=== PATIENT | female | born 1955 | race Caucasian/White ===

== ENCOUNTER → 2017-05-27 | Outpatient (CLI) | payer BC ==
[~2017-05-27] MED LIST: CEPHALEXIN500 M1 PO; FLEXERIL 1010 MG/TAB PO; NORCO 325 MG-51 TAB PO; PRILOSEC10 MG PO; VALTREX1 GM PO
== END ==
LOC: MC.RAD 08:22
DX: Z12.31 Encounter for screening mammogram for malignant neoplasm of breast (principal)

== ENCOUNTER → 2018-06-14 | Outpatient (CLI) | payer BC | LOC: MC.RAD 07:18 | DX: Z12.31 Encounter for screening mammogram for malignant neoplasm of breast (principal) ==

== ENCOUNTER → 2019-07-05 | Outpatient (CLI) | payer BC | LOC: MC.RAD 07:30 | DX: Z12.31 Encounter for screening mammogram for malignant neoplasm of breast (principal); N63.21 Unspecified lump in the left breast, upper outer quadrant ==

== ENCOUNTER → 2019-07-10 | Outpatient (CLI) | payer BC | LOC: MC.RAD 06:59 | DX: N63.21 Unspecified lump in the left breast, upper outer quadrant (principal) ==

== ENCOUNTER 2019-11-28 11:31 | Observation (INO) | payer BC ==
[~2019-11-28] VITALS: Ht 10.2 cm; Wt 75.3 kg
[2019-11-28 12:08] LABS: PROTHROMBIN TIME 11.5 SECONDS (9.7-12.8)
[2019-11-28 12:10] LABS: BASO # 0.1 (0.0-0.2); BASO % 0.9 % (0.0-2.0); EOS # 0.5 (0.0-0.7); EOS % 4.3 % (0-4.0); GRAN # 6.3 (1.4-6.5); GRAN % 60.8 % (42.2-75.2); HEMATOCRIT 38.9 % (37.0-47.0); HEMOGLOBIN 12.1 g/dl (12.5-16.0); LYMPH # 2.7 (1.2-3.4); LYMPH % 25.5 % (20.0-51.0); MEAN CELL VOLUME 84 fl (80.0-100.0); MEAN CORPUSCULAR HEMOGLOBIN 26 pg (27.0-31.0); MEAN CORPUSCULAR HGB CONC 31 g/dl (33.0-37.0); MEAN PLATELET VOLUME 10.8 fl (7.4-10.4); MONO # 0.9 (0.1-0.6); MONO % 8.2 % (1.7-9.3); PARTIAL THROMBOPLASTIN TIME 30.5 SECONDS (26.0-37.0); PLATELET COUNT 310 K/mm3 (130-400); RED BLOOD COUNT 4.65 M/mm3 (4.10-5.30); REDCELL DISTRIBUTION WIDTH-CV 15.3 % (11.5-14.5)
[2019-11-28 12:18] LABS: ALBUMIN 4.1 gm/dL (3.5-5.0); BILIRUBIN,TOTAL 0.7 mg/dL (0.0-1.0); CALCIUM 9.5 mg/dL (8.4-10.2); CREATININE, serum 1.03 (0.52-1.25); POTASSIUM 3.9 mmol/L (3.4-5.0); TOTAL PROTEIN 7.4 gm/dL (6.4-8.2)
[2019-11-28 12:31] LABS: TROPONIN-I 0.246 ng/mL (0.000-0.035)
[2019-11-28 18:15] VITALS: BP 140/82; PULSE 81; TEMP 98.3
--- NOTE | 2019-11-28 19:10 | NUR ---
Admission assessment completed, alert/oriented, vital signs stable, denies any chts pain/ discomfort/ palpitations, SR 70-80 on tele, denies any SOA or resp.difficulty, lungs CTA, meds/allergies/pharmacy reviewed, notified of her arrival to room 307, she is sitting up eating dinner at thistime, will be NPO after midnight, denies other needs
--- NOTE | 2019-11-28 19:20 | NUR ---
Assessment complete. Resting in bed. Conversant, pleasant. Denies pain, discomfort. Denies needs at this time.
[2019-11-28 19:49] VITALS: BP 120/77; PULSE 85; TEMP 99.2
[2019-11-28 23:49] VITALS: BP 100/68; PULSE 80; TEMP 97.9
[2019-11-29 04:12] VITALS: BP 105/67; PULSE 72; TEMP 97.8
[2019-11-29 07:27] VITALS: BP 113/77; PULSE 73; TEMP 98
--- NOTE | 2019-11-29 08:00 | NUR ---
Assessment complete pt awake in bed at this time, alert and oriented. Denies pain, discomfort or chest pain at this time. Stated she felt a little short of breath very early this morning after ambulating to the rest room but is not short of breath at rest. She is aware of her POC. IV site is CD&I, flushed well. States she is comfortable at this time. No other needs. Will continue to monitor. Call light is in reach.
[2019-11-29 08:23] LABS: BASO # 0.1 (0.0-0.2); BASO % 0.7 % (0.0-2.0); EOS # 1.2 (0.0-0.7); EOS % 14.3 % (0-4.0); GRAN % 46.5 % (42.2-75.2); HEMATOCRIT 35.5 % (37.0-47.0); HEMOGLOBIN 10.9 g/dl (12.5-16.0); LYMPH # 2.6 (1.2-3.4); LYMPH % 29.7 % (20.0-51.0); MEAN CELL VOLUME 84 fl (80.0-100.0); MEAN CORPUSCULAR HEMOGLOBIN 26 pg (27.0-31.0); MEAN CORPUSCULAR HGB CONC 31 g/dl (33.0-37.0); MEAN PLATELET VOLUME 11.1 fl (7.4-10.4); MONO # 0.7 (0.1-0.6); MONO % 8.6 % (1.7-9.3); PLATELET COUNT 252 K/mm3 (130-400); RED BLOOD COUNT 4.23 M/mm3 (4.10-5.30); REDCELL DISTRIBUTION WIDTH-CV 15.4 % (11.5-14.5)
[2019-11-29 08:50] LABS: CALCIUM 8.8 mg/dL (8.4-10.2); CHOLESTEROL RISK RATIO 3.8; CREATININE, serum 0.84 (0.52-1.25); POTASSIUM 3.8 mmol/L (3.4-5.0)
[2019-11-29 12:38] VITALS: BP 125/68; PULSE 77; TEMP 98
--- NOTE | 2019-11-29 14:25 | NUR ---
Photo Specialist met with patient to discuss discharge planning. Patient lives alone in [place] and sees Dr. Hernandez for primary care. Patient obtains medications from [facility] with no difficulties. 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 Patient does not use any DME and reports independence with ADLS. Patient does not have Advance Directives and was not interested in designating DPOA-HC at this time. Patient has two sons, Abbe (ph#[phone]) and Keo, ([phone]). Patient plans to return home at discharge and has transportation arrangements. No needs identified at this time.
--- NOTE | 2019-11-29 14:45 | NUR ---
PT LEFT THE FLOOR AT THIS TIME. DISCHARGE INSTRUCTIONS WERE DISCUSSED. NO FURTHER QUESTIONS OR CONCERNS.
== END 2019-11-29 15:26 | disposition home or self-care (01) ==
LOC: COL.ER 11:31 → MEDICAL 16:31
PROVIDERS: Family Medicine; Physician Assistant; ADMIT Internal Medicine
DX: I47.1 Supraventricular tachycardia (principal); I21.A1 Myocardial infarction type 2; I08.8 Other rheumatic multiple valve diseases; T14.90XA Injury, unspecified, initial encounter; M54.9 Dorsalgia, unspecified; K21.9 Gastro-esophageal reflux disease without esophagitis; Z88.2 Allergy status to sulfonamides; Z88.8 Allergy status to other drugs, medicaments and biological substances
CPT/HCPCS: J7030

== ENCOUNTER → 2019-12-03 | Outpatient (CLI) | payer BC | LOC: COL.CARD 11-30 08:00 | DX: R01.1 Cardiac murmur, unspecified (principal) ==

== ENCOUNTER → 2020-01-14 | Outpatient (CLI) | payer BC | LOC: MC.RAD 07:29 | DX: Z00.00 Encounter for general adult medical examination without abnormal findings (principal); N63.20 Unspecified lump in the left breast, unspecified quadrant ==

== ENCOUNTER 2020-01-25 16:46 | Outpatient (RCR) | payer BC | END 2020-03-16 | disposition home or self-care (01) | LOC: COL.CR | DX: I21.4 Non-ST elevation (NSTEMI) myocardial infarction (principal) ==

== ENCOUNTER 2020-02-27 16:26 | Outpatient (RCR) | payer SELFPAY | END 2020-04-27 | disposition home or self-care (01) | LOC: COL.CR | DX: Z02.89 Encounter for other administrative examinations (principal) ==

== ENCOUNTER 2020-05-20 11:52 | Observation (INO) | payer BC ==
[~2020-05-20] VITALS: Ht 162.6 cm; Wt 65.5 kg
[2020-05-20] MEDS ORDERED: ASPIRIN 81M81 MG/TA2 PO (12:34)
[2020-05-20] MEDS ORDERED: TOPROL XL 25MG25 MG (12:34)
[2020-05-20] MEDS ORDERED: VITAMIN D31000 I1 PO (12:35)
[2020-05-20] MEDS ORDERED: VITAMIN B COMPL1 SGL PO (12:35)
[2020-05-20 12:46] LABS: BASO # 0.1 (0.0-0.2); BASO % 0.5 % (0.0-2.0); EOS # 0.1 (0.0-0.7); EOS % 1.3 % (0-4.0); GRAN # 7.1 (1.4-6.5); GRAN % 71.8 % (42.2-75.2); HEMATOCRIT 40.1 % (37.0-47.0); HEMOGLOBIN 12.6 g/dl (12.5-16.0); LYMPH # 1.8 (1.2-3.4); LYMPH % 17.9 % (20.0-51.0); MEAN CELL VOLUME 83 fl (80.0-100.0); MEAN CORPUSCULAR HEMOGLOBIN 26 pg (27.0-31.0); MEAN CORPUSCULAR HGB CONC 31 g/dl (33.0-37.0); MEAN PLATELET VOLUME 10.6 fl (7.4-10.4); MONO # 0.8 (0.1-0.6); MONO % 8.1 % (1.7-9.3); PLATELET COUNT 322 K/mm3 (130-400); RED BLOOD COUNT 4.83 M/mm3 (4.10-5.30); REDCELL DISTRIBUTION WIDTH-CV 15.2 % (11.5-14.5)
[2020-05-20 12:50] LABS: ALBUMIN 4.2 gm/dL (3.5-5.0); BILIRUBIN,TOTAL 0.5 mg/dL (0.0-1.0); CALCIUM 9.7 mg/dL (8.4-10.2); CREATININE, serum 1.1 (0.52-1.25); POTASSIUM 4.5 mmol/L (3.4-5.0); TOTAL PROTEIN 7.4 gm/dL (6.4-8.2)
[2020-05-20 13:03] LABS: TROPONIN-I 0.087 ng/mL (0.000-0.035)
[2020-05-20 14:03] LABS: COLLECTION METHOD CLEAN CATCH
[2020-05-20 14:17] LABS: HYALINE CAST >12 /lpf; MUCOUS Present /lpf; PH 6 (5-8); SQUAMOUS EPITHELIAL 0-2 /hpf; URINE APPEARANCE Cloudy; URINE BACTERIA None Seen /hpf; URINE BILIRUBIN Negative (NEGATIVE); URINE BLOOD Negative (NEGATIVE); URINE COLOR Amber; URINE GLUCOSE Negative (NEGATIVE); URINE KETONE Negative (NEGATIVE); URINE LEUKOCYTE ESTERASE Negative (NEGATIVE); URINE NITRATE Negative (NEGATIVE); URINE PROTEIN(semi-quant) 2+ (NEGATIVE); URINE RBC 0-2 /hpf; URINE UROBILINOGEN Negative (NEGATIVE)
--- NOTE | 2020-05-20 22:15 | NUR ---
Received patient via stretcher from ED. She is alert and oriented. She is on room air. She's on tele. With IV on left AC infusing heparin at 8ml/hr. Call light within reach.
[2020-05-20 22:55] VITALS: BP 114/79; PULSE 95; TEMP 97.9
--- NOTE | 2020-05-20 23:50 | NUR ---
Assesment and med rec done. Instructed patient regarding frequent lab works due to her Troponin and HepaXa. Patient verbalizes understanding.
--- NOTE | 2020-05-21 02:15 | NUR ---
Patient asleep in bed. This nurse and Vanessa RN double checked change of heparin rate.
[2020-05-21 03:08] VITALS: BP 100/61; PULSE 66; TEMP 97.8
--- NOTE | 2020-05-21 06:11 | NUR ---
Patient had uneventful night. She denies pain. Heart rate has been stable the whole night. Latest heart rate was 64bpm. Heparin rip at 7ml/hr.
[2020-05-21 06:36] LABS: BASO # 0.1 (0.0-0.2); BASO % 0.6 % (0.0-2.0); EOS # 0.5 (0.0-0.7); EOS % 5.5 % (0-4.0); GRAN # 4.1 (1.4-6.5); GRAN % 49.7 % (42.2-75.2); HEMOGLOBIN 10.9 g/dl (12.5-16.0); LYMPH # 2.9 (1.2-3.4); LYMPH % 35.6 % (20.0-51.0); MEAN CELL VOLUME 83 fl (80.0-100.0); MEAN CORPUSCULAR HEMOGLOBIN 26 pg (27.0-31.0); MEAN CORPUSCULAR HGB CONC 32 g/dl (33.0-37.0); MONO # 0.7 (0.1-0.6); MONO % 8.5 % (1.7-9.3); PLATELET COUNT 255 K/mm3 (130-400); RED BLOOD COUNT 4.17 M/mm3 (4.10-5.30); REDCELL DISTRIBUTION WIDTH-CV 15.4 % (11.5-14.5)
[2020-05-21 06:45] LABS: ALBUMIN 3.3 gm/dL (3.5-5.0); BILIRUBIN,TOTAL 0.5 mg/dL (0.0-1.0); CREATININE, serum 0.74 (0.52-1.25); POTASSIUM 3.6 mmol/L (3.4-5.0); TOTAL PROTEIN 6.2 gm/dL (6.4-8.2)
[2020-05-21 06:53] LABS: HEMATOCRIT 34.4 % (37.0-47.0)
[2020-05-21 07:03] LABS: TROPONIN-I 0.139 ng/mL (0.000-0.035)
--- NOTE | 2020-05-21 07:33 | NUR ---
Patient alert and oriented on the bed during bedside report. HR in the 70's. hep gtt at 7ml/hr. patient have no question or concern at this time. hepxa recheck due at 0815.
--- NOTE | 2020-05-21 08:43 | NUR ---
Called lab for Hepxa draw.
[2020-05-21 08:55] VITALS: BP 120/71; PULSE 82; TEMP 98.3
--- NOTE | 2020-05-21 10:09 | NUR ---
Hepxa 0.32, patient at goal. no changes made to heparin gtt rate, still at 7ml/hr. recheck scheduled for 122
--- NOTE | 2020-05-21 11:19 | NUR ---
First visit from the vehicle calibration engineer. No needs right now.
--- NOTE | 2020-05-21 12:33 | NUR ---
College Scouting Coordinator met with patient to discuss discharge planning. Patient is up walking in her room and states she is eager to get home. 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 Patient sees Dr. Hernandez for primary care and obtains medications from [facility] with no difficulties. Patient does not use any DME and is independent with ADLS. Patient does not have Advance Directives and was not interested in setting up DPOA-HC at this time. Patient has two children: Keo (ph#[phone]) and Abbe (ph#[phone]). Patient plans to return home upon discharge. No needs identified at this time.
[2020-05-21 13:02] VITALS: BP 112/85; PULSE 74; TEMP 98
[2020-05-21] MEDS ORDERED: TOPROL XL 25MG25 MG PO (15:50)
--- NOTE | 2020-05-21 17:22 | NUR ---
hepxa at 1435 was 0.25. cardiology, Dr Huddleston signed off on patient with followup with followup with Dr Marti and PCP. int discontinued. Patient was started on Metoprolol 37.5mg. Patient was discharged home. Patient have no question or concen at this time.
== END 2020-05-21 16:30 | disposition home or self-care (01) ==
LOC: COL.ER 11:52 → MEDICAL 18:59
PROVIDERS: Student in an Organized Health Care Education/Training Program; ADMIT Emergency Medicine
DX: I47.1 Supraventricular tachycardia (principal); I21.4 Non-ST elevation (NSTEMI) myocardial infarction; Z79.82 Long term (current) use of aspirin; K21.9 Gastro-esophageal reflux disease without esophagitis; Z88.2 Allergy status to sulfonamides; Z91.040 Latex allergy status; J45.909 Unspecified asthma, uncomplicated; Z90.710 Acquired absence of both cervix and uterus
CPT/HCPCS: 99223-AI; 99239; G0378; J0153; J1644

== ENCOUNTER → 2020-07-09 | Outpatient (CLI) | payer BC ==
[~2020-07-09] MED LIST changes: +ASPIRIN 81M81 MG/TA2 PO; +TOPROL XL 25MG25 MG; +TOPROL XL 25MG25 MG PO; +VITAMIN B COMPL1 SGL PO; +VITAMIN D31000 I1 PO
== END ==
LOC: MC.RAD 07:30
DX: Z12.31 Encounter for screening mammogram for malignant neoplasm of breast (principal)

== ENCOUNTER → 2021-08-05 | Outpatient (CLI) | payer BC | LOC: MC.RAD 13:48 | DX: Z12.31 Encounter for screening mammogram for malignant neoplasm of breast (principal) ==

== ENCOUNTER → 2021-11-02 | Outpatient (CLI) | payer BC | LOC: COL.RAD 07:25 | DX: D33.3 Benign neoplasm of cranial nerves (principal) | CPT/HCPCS: A9575 ==

== ENCOUNTER → 2022-01-05 | Outpatient (CLI) | payer BC | LOC: COL.RAD 13:04 | DX: E04.1 Nontoxic single thyroid nodule (principal) ==

== ENCOUNTER → 2022-01-06 | Outpatient (CLI) | payer BC | LOC: COL.RAD 08:33 | DX: K21.9 Gastro-esophageal reflux disease without esophagitis (principal); E04.9 Nontoxic goiter, unspecified ==

== ENCOUNTER 2022-07-22 08:00 | Outpatient (RCR) | payer MEDICARE, OTHER | END 2022-07-27 | disposition home or self-care (01) | LOC: WSST | DX: R13.14 Dysphagia, pharyngoesophageal phase (principal); K21.9 Gastro-esophageal reflux disease without esophagitis ==

== ENCOUNTER → 2022-07-22 | Outpatient (CLI) | payer MEDICARE, OTHER | LOC: COL.RAD 07:05 | DX: Z00.00 Encounter for general adult medical examination without abnormal findings (principal); E04.1 Nontoxic single thyroid nodule; K21.9 Gastro-esophageal reflux disease without esophagitis ==

== ENCOUNTER → 2022-09-16 | Outpatient (CLI) | payer MEDICARE, OTHER | LOC: MC.RAD 07:15 | DX: Z12.31 Encounter for screening mammogram for malignant neoplasm of breast (principal) ==

== ENCOUNTER 2023-02-03 16:35 | Inpatient (IN) | payer MEDICARE, OTHER ==
[~2023-02-03] VITALS: Ht 162.6 cm; Wt 59.0 kg
[2023-02-03] VITALS (228 sets, daily range): BP systolic 110–136; BP diastolic 70–96; PULSE 75–118; TEMP 97.8–98.3; O2SAT 90–100
[2023-02-03] MEDS ORDERED: MESTINON 6060 MG/TAB PO (17:33)
[2023-02-03] MEDS ORDERED: B COMPLEX #11 TA1 PO (17:34)
[2023-02-03] MEDS ORDERED: TAMBOCOR50 MG PO (17:34)
[2023-02-03] MEDS ORDERED: SELENOMAX200 MC1 PO (17:35)
[2023-02-03] MEDS ORDERED: NATURAL IRON65 MG PO (17:37)
[2023-02-03] MEDS ORDERED: PRILOSEC 20MG20 MG PO (17:38)
[2023-02-03 17:53] LABS: BASO % 0.3 % (0.0-2.0); EOS % 0.3 % (0.0-4.0); GRAN # 9.1 K/mm3 (1.4-6.5); GRAN % 76.6 % (42.2-75.2); HEMATOCRIT 46.2 % (37.0-47.0); HEMOGLOBIN 15.6 g/dl (12.5-16.0); LYMPH # 1.7 K/mm3 (1.2-3.4); MEAN CELL VOLUME 89 fl (80.0-100.0); MEAN CORPUSCULAR HEMOGLOBIN 30 pg (27-31); MEAN CORPUSCULAR HGB CONC 34 g/dl (33.0-37.0); MEAN PLATELET VOLUME 10.1 fl (7.4-10.4); MONO % 8.5 % (1.7-9.3); PLATELET COUNT 258 K/mm3 (130-400); RED BLOOD COUNT 5.21 M/mm3 (4.10-5.30); REDCELL DISTRIBUTION WIDTH-CV 12.4 % (11.5-14.5)
[2023-02-03 18:09] LABS: ALBUMIN 4.2 gm/dL (3.4-4.8); BILIRUBIN,TOTAL 0.7 mg/dL (0.2-1.2); CALCIUM 10.6 mg/dL (8.4-10.2); CREATININE, serum 0.82 mg/dL (0.57-1.11); MAGNESIUM 2.1 mg/dL (1.6-2.6); PHOSPHOROUS 3.6 mg/dL (2.3-4.7); POTASSIUM 3.9 mmol/L (3.5-4.5); TOTAL PROTEIN 8.3 gm/dL (6.2-8.1)
[2023-02-03 18:31] LABS: TSH w REFLEX 2.78 uIU/mL (0.350-4.940)
--- NOTE | 2023-02-03 19:45 | NUR ---
PT TRANSFERRED DOWN FROM MEDICAL FLOOR VIA WHEELCHAIR. MOVED TO ICU BED AND CONNECTED TO MONITORING. PT'S SISTER AND NIECE AT BEDSIDE, REVIEWED POC, ANSWERED QUESTIONS, EXPLAINED VISITING HOURS AND GIVEN PT'S PRIVACY CARD AND UNIT PHONE NUMBER. PT IN NO ACUTE DISTRESS, VSS. PT DOES HAVE COUGH, INCREASED SECRETIONS IN THROAT DUE TO DIFFICULTY SWALLOWING, HOWEVER LUNG SOUNDS CLEAR AND PT ABLE TO CLEAR AIRWAY. HAS BOX OF TISSUES AND EXPECTORATING NEEDED. DENIES PAIN. EXPLAINED NPO ORDER, DID PROVIDE CUP OF WATER WITH ORAL SWABS. NEW PIV STARTED TO LW, 20G DIFFUSICS, NEEDED FOR INCOMPATIBLE IV MED ORDERS. PT TOLERATED WELL. STATES UNDERSTANDING OF POC.
[2023-02-04] VITALS (589 sets, daily range): BP systolic 96–132; BP diastolic 48–80; PULSE 71–85; TEMP 97.6–98.6; O2SAT 91–100
--- NOTE | 2023-02-04 | NUR ---
GAMMAGARD INFUSION COMPLETE. PT TOLERATED WELL WITH NO ADVERSE REACTIONS. HAS BEEN RESTING IN BED.
[2023-02-04 05:37] LABS: BASO % 0.2 % (0.0-2.0); GRAN # 5.5 K/mm3 (1.4-6.5); GRAN % 89.6 % (42.2-75.2); HEMATOCRIT 41.1 % (37.0-47.0); LYMPH # 0.6 K/mm3 (1.2-3.4); LYMPH % 8.9 % (20.0-51.0); MEAN CELL VOLUME 91 fl (80.0-100.0); MEAN CORPUSCULAR HEMOGLOBIN 30 pg (27-31); MEAN CORPUSCULAR HGB CONC 33 g/dl (33.0-37.0); MEAN PLATELET VOLUME 10.4 fl (7.4-10.4); MONO # 0.1 K/mm3 (0.1-0.6); PLATELET COUNT 218 K/mm3 (130-400); RED BLOOD COUNT 4.51 M/mm3 (4.10-5.30); REDCELL DISTRIBUTION WIDTH-CV 12.5 % (11.5-14.5)
[2023-02-04 05:42] LABS: HEMOGLOBIN 13.5 g/dl (12.5-16.0)
[2023-02-04 06:03] LABS: CALCIUM 8.9 mg/dL (8.4-10.2); CREATININE, serum 0.72 mg/dL (0.57-1.11)
--- NOTE | 2023-02-04 09:36 | NUR ---
Attempted visit; Patient occupied with Nurse. Oven Equipment Repairer left card offering Spiritual Care and God's blessings.
[2023-02-04 11:29] LABS: CHOLESTEROL 127 mg/dL (0-199); TRIGLYCERIDE 36 mg/dL (0-149)
--- NOTE | 2023-02-04 12:54 | NUR ---
1230 NURSE TO NURSE REPORT GIVEN TO AMALIA RN ON MEDICAL FLOOR. ORDERS IN FOR PT TO TRANSFER TO ROOM 355. 1247 PT LEFT UNIT WITH AMALIA AND 2 PCT'S FOR TRANSFER. ALL BELONGSING TAKEN WITH PT. PT STATED SHE NOTIFIED HER FAMILY VIA TEXT OF NEW ROOM CHANGE AND STATED THIS NURSE DID NOT NEED TO NOTIFY ANYONE.
--- NOTE | 2023-02-04 18:30 | NUR ---
PATIENT HIT CALL LIGHT. PCT ENTERED ROOM AND IMMEDIATLY CALLED RN THAT PATIENTS BREATHING DIDNT SOUND RIGHT. UPON ENTERING THE ROOM THIS RN SAW PATIENT SEEMING TO WHEEZE THOUGH SHE COULD NOT GET ANY AIR. PATIENT KEPT POINTING TO HER THROAT, WHEN ASKED IF SHE HAD MUCOUS SHE WAS UNABLE TO GET UP PATIENT NODDED YES. (ANOTHER RN AT THIS TIME CALLED RESPIRATORY). THIS RN HAD TO SUCTION SLIGHTLY DOWN PATIENTS THRAOT TO GET A MODERATE AMOUNT OF MUCOUS. AFTER THIS PATIENT WAS ABLE TO BREATHE AND SPEAK. PATIENT STATED SHE FELT LIKE MUCOUS HAD STARTED TO POOL AND SHE COULDNT COUGH IT UP. PATIENT REPORTS FEELING BETTER. O2 SAT NORMAL. PATIENT DENIES ANY NEEDS OR COMPLAITNS AT THIS TIME. PATIENT REPORTED SHE DID NOT HAVE THIS ISSUE IN ICU. CALL LIGHT WITHIN REACH.
--- NOTE | 2023-02-04 19:50 | NUR ---
NIF AT THIS TIME WAS -30. THIS WAS BEST OUT OF 4 ATTEMPTS
[2023-02-05] VITALS (1056 sets, daily range): BP systolic 79–134; BP diastolic 56–83; PULSE 62–86; TEMP 97.4–99; O2SAT 89–100
--- NOTE | 2023-02-05 00:05 | NUR ---
PT NIF -10 AFTER 3 ATTEMPTS. RN INFORMED AND CALLED PROVIDER TO INFORM OF FINDINGS.
--- NOTE | 2023-02-05 01:10 | NUR ---
PT INTUBATED AT 0037 WITH 7.5 ETT AT 22@TEETH. COLOR CHANGE POSITIVE ON ETCO2 AND BILATERAL BREATHSOUNDS. ETT SECURED WITH NELY WITHOUT INCIDENT.
--- NOTE | 2023-02-05 02:21 | NUR ---
AT 2230 THE PATIENT REPORTED THAT SHE WAS HAVING A HEAVY FEELING WHEN SHE WAS TRYING TO TAKE A BREATH. THE PATIENT ALSO EXPRESSED THAT SHE FELT LIKE HER BREATHING WAS MORE DIFFICULT AND SHE HAD DIFFICULTY DESCRIBING IT. AT THIS TIME THE PATIENT DID NOT APPEAR TO BE IN DISTRESS AND HER BREATHING WAS NOT LABORED. RT WAS CONTACTED AND CAME TO THE BEDSIDE TO DO AN NIF WHICH WAS -10. THE PATIENT CONTINUED TO REPORT THE FEELING OF BEING SHORT OF BREATH AND HAVING THAT HEAVY FEELING WHEN TRYING TO TAKE A BREATH. FOZIA MAY APRN WAS NOTIFIED AND CAME TO THE BEDSIDE. CONSIDERATIONS WERE MADE AND IT WAS DECIDED THAT THE PATIENT WOULD BE MOVED TO THE ICU BED 5. REPORT WAS CALLED AT 0015 TO MIGUELITO JIMENEZ. THE PATIENT WAS MOVED TO THE ICU BED 5 AND CARE WAS TRANSFERRED AT 0030. THE PTS PERSONAL BELONGINGS WERE WITH THE PATIENT UPON TRANSFER.
[2023-02-05 02:40] LABS: ARTERIAL BLD GAS O2 SATURATION 99.1 % (92-100); ARTERIAL BLD GAS TCO2 CT 19.6; ARTERIAL BLOOD GAS BASE EXCESS -4.1 (-2-2); ARTERIAL BLOOD GAS HCO3 18.7 meq/L (22-26); ARTERIAL BLOOD GAS PCO2 28.7 mmHg (35-45); ARTERIAL BLOOD GAS pH 7.43 (7.35-7.45)
[2023-02-05 02:44] LABS: ARTERIAL BLOOD GAS PO2 168.1 mmHg (80-100)
[2023-02-05 06:04] LABS: CALCIUM 8.1 mg/dL (8.4-10.2); CREATININE, serum 0.67 mg/dL (0.57-1.11)
--- NOTE | 2023-02-05 08:36 | NUR ---
Did not do sedation vacation since pt was just intubated and pt is on a low dose of sedation. Want the pt to rest at this time.
--- NOTE | 2023-02-05 09:04 | NUR ---
Pt's vitals have been stable throughout the night. Pt is lying in bed, intubated. Pt has prop and fent on. Amio, NS, and TPN are also running at this time. Pt's is able to follow commands. Gave report to day shift nurse.
--- NOTE | 2023-02-05 09:07 | NUR ---
Isa RN from medical floor gave report at 0013. Isa states that she did not give the IVIG at 2100 because her and the hospitalist were worried about making the pt sleep with the pt having difficulty breathing. Pt arrived on the unit at 0025. Pt was alert and oriented x4 and able to answer questions. Pt consented to being intubated with 4 other people in the room. Apolinar TOLEDO) the anestesiologist intubated this pt. Versed was given at 0032 per EMAR, Prop was give at 0034 per EMAR, and Sudhakar was given at 0035 per EMAR. There was color change at 0037 and this nurse listened to lung sounds, and heard lung sounds in all lobes. Prop and Fent drips were started at 0039. ET tube was 7.5 and placed 22 at teeth. Nurse placed OG and Leija per charting.
--- NOTE | 2023-02-05 09:17 | NUR ---
Manager Quantitative rounds: Patient intubated. Son Keo with her. Keo's father is also a Patient in the hospital today. Provided supportive listening for Keo; prayer for Patient and Family. Manager Quantitative attempted to contact Keo's Apprentice Plant Attendant at [facility]. Got voicemail. Left a message with Manager Quantitative's contact information for the Apprentice Plant Attendant to contact the Manager Quantitative.
--- NOTE | 2023-02-05 13:44 | NUR ---
PATIENT HAS STARTED TUBE FEEDS VIA OG TUBE. BLOOD PRESSURE HAS BEEN SOFT, LOW 80S AND HIGH 70S, WITH MAP BETWEEN 60-65. PROP IS AT 10 MCG/HR, AND FENT IS AT 5O MCG/HR. PATIENT IS MORE ALERT, ABLE TO WRITE OUT WORDS, AND FOLLOW COMMANDS.
--- NOTE | 2023-02-05 13:50 | NUR ---
PATIENT HAD NOTABLE DROP IN BLOOD PRESSURES, REACHING 70/40'S, CALLED DR. LOONEY, NOTIFIED PHYSICIAN, AND STARTED LEVOPHED. IMMEDIATELY FOLLOWING INTERVENTION, BLOOD PRESSURE HAS CONSISTANTLY BEEN 120S/80S. THEREFORE SEDATION HAS BEEN INCREASED TO DECREASE AGITATION FROM BEING INTUBATED.
--- NOTE | 2023-02-05 16:09 | NUR ---
OLGA met with susan Landon [phone] to complete intake due to patient being intubated. Son states patient lives in [facility] alone. Patient does not utilize DME, independent with ADL's and no home health is utilized at this time. Patient plan to return home upon dc. OLGA will continue to follow. DC plan: home
--- NOTE | 2023-02-05 17:57 | NUR ---
PATIENT VSS ARE STABLE WITH LEVOPHED SUPPORT, HAS PROPOPOL AND FENTANYL FOR SEDATION/PAIN, TPN/ TUBE FEEDING FOR NUTRITION, NS AND AMIODARIONE INFUSING. CORADO DRAINING APPROPRIATELY. PATIENT IS ALERT AND IS ABLE TO WRITE HER NEEDS DOWN ON A PIECE OF PAPER.
--- NOTE | 2023-02-05 18:10 | NUR ---
PATIENT HAS BEEN ALERT ALL DAY, NO NEED FOR A SEDATION VACATION. WORKING ON GETTING HER COMFORTABLE WHILE SHE IS AWAKE AND ALERT.
[2023-02-05 19:20] LABS: ARTERIAL BLD GAS O2 SATURATION 98.3 % (92-100); ARTERIAL BLOOD GAS BASE EXCESS -2.5 (-2-2); ARTERIAL BLOOD GAS HCO3 21.9 meq/L (22-26); ARTERIAL BLOOD GAS PCO2 36.7 mmHg (35-45); ARTERIAL BLOOD GAS pH 7.39 (7.35-7.45)
[2023-02-05 19:40] LABS: POTASSIUM 4.9 mmol/L (3.5-4.5)
--- NOTE | 2023-02-05 19:52 | NUR ---
Received report from day shift nurse Alok. Pt is alert and intubated and follows commands. Pt's vitals are stable at this time. Pt is on TPN, amio, levophed, Prop, Fent, and Tube feedings. Nurse asked if pt is comfortable and pt shakes their head up and down in yes a motion.
[2023-02-05 21:54] LABS: ARTERIAL BLOOD GAS PO2 130.9 mmHg (80-100)
[2023-02-06] VITALS (1096 sets, daily range): BP systolic 101–132; BP diastolic 65–88; PULSE 61–86; TEMP 97.9–98.5; O2SAT 91–100
[2023-02-06 05:10] LABS: ARTERIAL BLD GAS O2 SATURATION 97.9 % (92-100); ARTERIAL BLD GAS TCO2 CT 23.6; ARTERIAL BLOOD GAS BASE EXCESS -2.2 (-2-2); ARTERIAL BLOOD GAS HCO3 22.4 meq/L (22-26); ARTERIAL BLOOD GAS pH 7.39 (7.35-7.45)
[2023-02-06 05:28] LABS: MEAN CELL VOLUME 90 fl (80.0-100.0); MEAN CORPUSCULAR HGB CONC 33 g/dl (33.0-37.0); MEAN PLATELET VOLUME 10.8 fl (7.4-10.4); PLATELET COUNT 206 K/mm3 (130-400); RED BLOOD COUNT 3.75 M/mm3 (4.10-5.30); REDCELL DISTRIBUTION WIDTH-CV 12.9 % (11.5-14.5)
[2023-02-06 05:41] LABS: HEMATOCRIT 33.7 % (37.0-47.0); HEMOGLOBIN 11.2 g/dl (12.5-16.0); MEAN CORPUSCULAR HEMOGLOBIN 30 pg (27-31)
[2023-02-06 05:45] LABS: CREATININE, serum 0.7 mg/dL (0.57-1.11); MAGNESIUM 2.1 mg/dL (1.6-2.6); PHOSPHOROUS 2.4 mg/dL (2.3-4.7); POTASSIUM 3.3 mmol/L (3.5-4.5)
[2023-02-06 06:19] LABS: BAND 1 % (0-10); LYMPHOCYTE 2 % (20.0-51.0); NEUTROPHILS 95 % (42.0-75.2)
[2023-02-06 06:20] LABS: PLATELET ESTIMATE NORMAL (NORMAL)
--- NOTE | 2023-02-06 06:30 | NUR ---
PATIENT IS INTUBATED, RESTING CURRENTLY SURING SHIFT CHANGE. VSS, PROPOPOL, FENTANYL, TPN, AMIODARONE, AND NORMAL SALINE ARE INFUSING WITHOUT COMPLICATIONS. PIVOT TUBE FEEDINGS ARE RUNNING AT 20 ML/ HR, OG IS AT 60 CM AT THE TEETH, DENIES DISCOMFORT. ETT TUBE IS 23 CM AT THE TEETH, 25%FIO2, 400 TIDAL, AND PEEP OF 5. HAD ADEQUATE OUTPUT OVER NIGHT.
--- NOTE | 2023-02-06 06:30 | NUR ---
Pt did sedation vacation and cut both fent and prop rates in half. Pt is alert and calm. Pt follows commands. Pt is still on the half rate since she is alert and calm. Start sedation vaction at 0610. Pt had an uneventful night. Pt on prop, fent, levophed, amio, NS, TPN, and ABX. Pt's vitals have been stable throughout the night. Will give report to day shift nurse.
--- NOTE | 2023-02-06 10:37 | NUR ---
PT EXTUBATED AT [address] RICHARDSON ORDERS.PT WAS SUCTIONED VIA ETT AND ORALLY PRIOR TO EXTUBATION.NO ADVERSE EFFECTS.NO SIGNS OF RESPIRATORY DISTRESS.NO STRIDOR NOTED.BLBS ARE CLEAR AND EQUAL. ORALLY SUCTIONED POST EXTUBATION PT CURRENTLY ON ROOM AIR. SPO2 94%, HR 89, RR 19.RN AT BEDSIDE DURING EXTUBATION WITH THIS RT.
--- NOTE | 2023-02-06 12:00 | NUR ---
SHUT OFF SEDATION AT 0905 FOR CPAP TRIAL, CALLED RT AT 0915 TO CHANGE SETTINGS. EXTUBATION AT 1023, PATIENT TOLERATED CPAP SETTINGS AND EXTUBATION WELL. ABG WAS ORDERED FOR 2 HOURS LATER. VSS, DURING CPAP AND EXTUBATION. ABG WNL. MONITORING BREATHING AND COUGH EFFORTS, CURRENT O2 IS ROOM AIR AND SATURATION IS 96%.
[2023-02-06 12:56] LABS: ARTERIAL BLD GAS O2 SATURATION 95.5 % (92-100); ARTERIAL BLD GAS TCO2 CT 26.1; ARTERIAL BLOOD GAS BASE EXCESS 1.1 (-2-2); ARTERIAL BLOOD GAS PCO2 36.9 mmHg (35-45); ARTERIAL BLOOD GAS PO2 74.4 mmHg (80-100); ARTERIAL BLOOD GAS pH 7.45 (7.35-7.45)
--- NOTE | 2023-02-06 18:12 | NUR ---
PATIENT IS TOLERATING BEING OFF THE VENTILATOR, DENIES DISTRESS OR SHORTNESS OF BREATH. VSS, O2 AT 95 PER MONITOR. LUNGS CLEAR.
--- NOTE | 2023-02-06 21:27 | NUR ---
RECEIVED REPORT FROM KALANI CASTELAN RN. PATIENT ALERT IN BED WATCHING TV AT THIS TIME. CALL LIGHT WITHIN REACH. ORDERS, LABS, AND MEDICATIONS REVIEWED AND ACKNOWLEDGED.
--- NOTE | 2023-02-06 21:31 | NUR ---
HEAD TO TOE ASSESSMENT COMPLETED. PATIENT ALERT AND ORIENTATED X4. PUPILS EQUAL AND REACTIVE. HEART SOUNDS REGULAR WITH S1 AND S2 NOTED. LUNG SOUNDS ARE CLEAR BILATERALLY IN UPPER AND LOWER LOBES. BOWEL SOUNDS PRESENT IN ALL QUADRANTS. CORADO IN PLACE DRAINING PALE YELLOW, CLEAR URINE. PULSES PRESENT BILATERALLY IN UPPER AND LOWER EXTREMITIES. PATIENT HAS NO COMPLAINTS OF PAIN AT THIS TIME. MEDICATIONS ADMINISTERED PER EMAR. CALL LIGHT WITHIN REACH.
--- NOTE | 2023-02-06 23:32 | NUR ---
GAMMAGARD STARTED AT 2114. 2114 - RATE 0.5ML/KG/HR (32ML/HR), VITAL SIGNS: 125/85, 86, 99% - BIPAP, 16, 98.3 (AXILLARY). 0 - 131/82, 80, 97% - BIPAP, 17, 98.4 (AXILLARY). 2145 - RATE INCREASED TO 1.0ML/KG/HR (64ML/HR). 125/81, 79, 18, 97% - BIPAP, 98.4 (AXILLARY) 2200- 126/77, 80, 16, 97% - BIPAP, 98.5 (AXILLARY) 2215 - RATE INCREASED TO 1.5ML/KG/HR (96ML/HR). 132/76, 86, 18, 99% - BIPAP, 98.4 (AXILLARY) 2245 - RATE INCREASED TO 2.0ML/KG/MIN (128 ML/HR). 122/76, 80, 17, 99% - BIPAP, 98.5 (AXILLARY) 2300 - 125/76, 77, 15, 99% - BIPAP, 98.5 (AXILLARY) 2330 - GAMMAGARD SHUT OFF. 116/78, 73, 14, 98% - BIPAP, 98.3 (AXILLARY)
[2023-02-07] VITALS (632 sets, daily range): BP systolic 121–131; BP diastolic 72–86; PULSE 64–93; TEMP 97.8–98.6; O2SAT 81–100
[2023-02-07 05:33] LABS: HEMOGLOBIN 11.6 g/dl (12.5-16.0); MEAN CELL VOLUME 94 fl (80.0-100.0); MEAN CORPUSCULAR HEMOGLOBIN 33 pg (27-31); MEAN CORPUSCULAR HGB CONC 35 g/dl (33.0-37.0); MEAN PLATELET VOLUME 11.2 fl (7.4-10.4); PLATELET COUNT 164 K/mm3 (130-400); REDCELL DISTRIBUTION WIDTH-CV 13.1 % (11.5-14.5)
[2023-02-07 05:36] LABS: HEMATOCRIT 32.9 % (37.0-47.0)
[2023-02-07 05:59] LABS: BAND 1 % (0-10); LYMPHOCYTE 5 % (20.0-51.0); NEUTROPHILS 93 % (42.0-75.2); PLATELET ESTIMATE NORMAL (NORMAL)
--- NOTE | 2023-02-07 06:46 | NUR ---
PATIENT HAD A VERY HARD TIME SLEEPING THROUGHOUT THE NIGHT D/T DISCOMFORT FROM BIPAP MASK. PATIENT WAS ABLE TO TOLERATE SIPS OF WATER. OVERALL, UNEVENTFUL NIGHT. PATIENT CURRENTLY RESTING IN BED WITH EYES CLOSED. CALL LIGHT WITHIN REACH.
[2023-02-07 08:15] LABS: ALBUMIN 2.3 gm/dL (3.4-4.8); BILIRUBIN,TOTAL 0.2 mg/dL (0.2-1.2); CALCIUM 8.1 mg/dL (8.4-10.2); CREATININE, serum 0.62 mg/dL (0.57-1.11); MAGNESIUM 2.2 mg/dL (1.6-2.6); PHOSPHOROUS 2.8 mg/dL (2.3-4.7); POTASSIUM 3.8 mmol/L (3.5-4.5); TOTAL PROTEIN 6.9 gm/dL (6.2-8.1)
--- NOTE | 2023-02-07 11:21 | NUR ---
Transfered upstairs via wheelchair. Alert and oriented and in no distress upon transfer. Receiving RN helped with the transfer upstairs.
--- NOTE | 2023-02-07 21:48 | NUR ---
Patient assessed around 2099. Denies having pain and discomfort. PICC to AYDIN. Had TNP/Lipds running to red port, and Amiodarone runnign to purple per orders. INT to left hand and left wrist. Started IVIG at 2126, moved Amiodarone to left wrist while IVIG is infusing. Tolerating well so far. Remains NPO, ice chips ok. RT placed BIPAP on per orders. Patient voices no questions, needs, or concerns at this time. In bed with call light within reach. High fall risk precautions in place. Bed alarm on.
[2023-02-08] VITALS (12 sets, daily range): BP systolic 120–131; BP diastolic 75–94; PULSE 74–90; TEMP 97.4–98.6
--- NOTE | 2023-02-08 00:17 | NUR ---
Gammagard started at 2126, and completed at 2354. See VS and IV titration for rate changes. Tolerated well.
--- NOTE | 2023-02-08 05:47 | NUR ---
PT WORE BIPAP FROM 8:30PM-05;30AM
[2023-02-08 05:57] LABS: BASO % 0.1 % (0.0-2.0); GRAN % 89.7 % (42.2-75.2); HEMOGLOBIN 11.1 g/dl (12.5-16.0); LYMPH # 0.4 K/mm3 (1.2-3.4); LYMPH % 5.2 % (20.0-51.0); MEAN CELL VOLUME 92 fl (80.0-100.0); MEAN CORPUSCULAR HEMOGLOBIN 30 pg (27-31); MEAN CORPUSCULAR HGB CONC 32 g/dl (33.0-37.0); MEAN PLATELET VOLUME 10.8 fl (7.4-10.4); MONO # 0.3 K/mm3 (0.1-0.6); PLATELET COUNT 151 K/mm3 (130-400); RED BLOOD COUNT 3.76 M/mm3 (4.10-5.30); REDCELL DISTRIBUTION WIDTH-CV 12.8 % (11.5-14.5)
[2023-02-08 06:02] LABS: HEMATOCRIT 34.7 % (37.0-47.0)
--- NOTE | 2023-02-08 06:06 | NUR ---
Patient wore BIPAP most of night. Tolerating ice chips well. TPN continues per orders, lipids have completed. Continues on Amiodarone per orders as well, switched back over to PICC line after IVIG was completed. Receiving Zosyn per orders to peripheral INT. Voices no questions, needs, or concerns at this time. In bed with call light within reach. High fall risk precautions in place. Bed alarm on.
[2023-02-08 06:18] LABS: CALCIUM 8.4 mg/dL (8.4-10.2); CREATININE, serum 0.67 mg/dL (0.57-1.11); MAGNESIUM 2.2 mg/dL (1.6-2.6); PHOSPHOROUS 3.4 mg/dL (2.3-4.7); POTASSIUM 3.6 mmol/L (3.5-4.5)
--- NOTE | 2023-02-08 10:58 | NUR ---
Inspiratory muscle eval results: negative 30 CM H20 PATIENT GAVE EXCELLANT EFFORT.
--- NOTE | 2023-02-08 13:45 | NUR ---
8 malay dobhoff placed to left nare and secured with bridal. Patient tolerated well. x-ray contacted for placement confirmation.
--- NOTE | 2023-02-08 15:48 | NUR ---
Confirmed placement of dobhoff with x-ray- advanced tube to 100cm- patient tolerated well. Stylet removed and other port flushed with 30ml water without difficutly. MIGUELITO Robbins at bedside and aware of placement and confirmation of placement.
--- NOTE | 2023-02-08 18:00 | NUR ---
Shift summary: A&O, denies pain, sats mid 90's RA. SR on telemetry. ST swallow eval, remains NPO with mildly thick liquids. TPN and Amio gtt d/c. Placed Dobhoff to L nare. Placement in stomach confirmed by CXR, advanced remaining tube and secured with bridle. Pt tolerated initial feed. Meds diluted and given without difficulty. Replaced K+ per protocol. RT to complete q shift NIF tests.
--- NOTE | 2023-02-08 21:41 | NUR ---
Patient assessed at this time. Alert and oriented, and able to make needs known. Denies having pain and discomfort. PICC to [facility], peripheral INT to left hand and wrist. Dophoff in place. 3 mls of monzon residual. Reported that during last feedings she was having some abdominal discomfort, but denied at that time. Given medication through dophoff, and able to tolerate 100 mls of feeding before the full feeling was starting. Stopped feeding, and flushed with water. Had total of 100 mls of water, and 100 mls of Jevity 1.5. HOB remains elevated. Voices no questions, needs, or concerns at this time. In bed with call light within reach. High fall risk precautions in place. Bed alarm on.
[2023-02-09] VITALS (11 sets, daily range): BP systolic 121–134; BP diastolic 77–83; PULSE 75–91; TEMP 97.5–98.5
--- NOTE | 2023-02-09 05:54 | NUR ---
Patient taking all medications through Dophoff this shift. Tolerated well. Denies pain and discomfort at this time, as well as nausea. Voices no questions, needs, or concerns at this time. In bed with call light within reach.
[2023-02-09 07:17] LABS: BASO % 0.1 % (0.0-2.0); GRAN # 6.4 K/mm3 (1.4-6.5); GRAN % 83.5 % (42.2-75.2); HEMOGLOBIN 11.5 g/dl (12.5-16.0); LYMPH # 0.8 K/mm3 (1.2-3.4); LYMPH % 9.8 % (20.0-51.0); MEAN CELL VOLUME 89 fl (80.0-100.0); MEAN CORPUSCULAR HEMOGLOBIN 29 pg (27-31); MEAN CORPUSCULAR HGB CONC 33 g/dl (33.0-37.0); MEAN PLATELET VOLUME 11.1 fl (7.4-10.4); MONO # 0.4 K/mm3 (0.1-0.6); MONO % 5.8 % (1.7-9.3); PLATELET COUNT 200 K/mm3 (130-400); RED BLOOD COUNT 3.96 M/mm3 (4.10-5.30); REDCELL DISTRIBUTION WIDTH-CV 12.5 % (11.5-14.5)
[2023-02-09 07:18] LABS: HEMATOCRIT 35.2 % (37.0-47.0)
[2023-02-09 07:38] LABS: ALBUMIN 2.4 gm/dL (3.4-4.8); BILIRUBIN,TOTAL 0.3 mg/dL (0.2-1.2); CALCIUM 8.5 mg/dL (8.4-10.2); CREATININE, serum 0.62 mg/dL (0.57-1.11); MAGNESIUM 2.1 mg/dL (1.6-2.6); PHOSPHOROUS 3.9 mg/dL (2.3-4.7); POTASSIUM 3.3 mmol/L (3.5-4.5); TOTAL PROTEIN 7.1 gm/dL (6.2-8.1)
--- NOTE | 2023-02-09 12:00 | NUR ---
Pt to radiology via WC for swallow study. Instructed by Clemente Vargasician, to hold tube feeds until Dobhoff placement checked.
--- NOTE | 2023-02-09 12:30 | NUR ---
Removed Dohoff from L nare. Pt tolerated procedure well. No issues encountered, tube removed complete. Per ST, pt passed swallow study. Diet changed to soft/thin liquids per pt request.
--- NOTE | 2023-02-09 15:13 | NUR ---
Clipman met with patient to review discharge plan. Patient plans to return home at time of discharge. Outpatient Speech is recommended and patient advised she is already established with [facility]. SW will send updates and orders when patient discharges.
--- NOTE | 2023-02-09 22:46 | NUR ---
UPON SHIFT ASSESSMENT, RENE WAS FOUND UP AND WALKING TO BATHROOM. SHE DENIED PAIN AND SOA AND HER VITAL SIGNS ARE CURRENTLY STABLE. SHE HAS PROGRESSED TO SOFT BITE-SIZED, THIN LIQUID DIET AND TOOK HER MEDS CRUSHED IN PUDDING WITH NO COMPLICATIONS. HER HAND AND FOOT STRENGTH WAS EQUAL AND HER EYES SHOWED NO DROOPING R/T MYASTHENIA GRAVIS. LUNG SOUNDS WERE CLEAR AND UNLABORED. RENE STATED THAT SHE IS EAGER TO GET BACK HOME. CALL LIGHT WITHIN REACH, INDEPENDENT WITH STEADY GAIT.
[2023-02-10] VITALS (9 sets, daily range): BP systolic 122–131; BP diastolic 75–82; PULSE 71–80; TEMP 97.6–98.3
--- NOTE | 2023-02-10 06:05 | NUR ---
DURING END OF SHIFT ASSESSMENT, RENE WAS SLEEPING SOUNDLY. HER LAST DOSE OF MESTINON WAS GIVEN CRUSHED IN APPLEJUICE @ 0415. NO SWALLOWING COMPLICATIONS WERE NOTED. VITAL SIGNS ARE WNL, CALL LIGHT WITHIN REACH.
--- NOTE | 2023-02-10 06:11 | NUR ---
UPON END OF SHIFT ASSESSMENT, PATRICK WAS SLEEPING SOUNDLY. SKIN ON RT FOOT WITH SHACKLES IS NORMAL AND INTACT. OFFICER WAS BEDSIDE. VSS ARE WNL.
--- NOTE | 2023-02-10 09:30 | NUR ---
Patient is resting in the chair, alert and oriented x 4, expecting to go home today. Pt moving around the room. Assessment completed, meds provided. No further needs at this time. Call light within reach.
[2023-02-10] MEDS ORDERED: MESTINON 6060 MG/TAB PO (11:01)
[2023-02-10] MEDS ORDERED: PREDNISONE20 MG PO (11:07)
--- NOTE | 2023-02-10 15:31 | NUR ---
Engineering Scientist met with patient and presented IM form. Patient verbalized understanding and provided signature. OLGA placed form in chart then provided copy to patient. food and beverage order clerk made appointment for outpatient ST. OLGA faxed discharge orders to [facility].
--- NOTE | 2023-02-10 17:29 | NUR ---
Patient was provided with discharge information, all questions answered. Telemetry and PICC were discontinued. Patiente taken by wheelchair to the patient entrance.
== END 2023-02-10 17:00 | disposition home or self-care (01) | DRG 56 ==
LOC: SURG 16:35 → ICU 16:35 → MEDICAL 02-04 14:16 → ICU 02-05 00:40 → MEDICAL 02-07 11:30
PROVIDERS: Internal Medicine Pulmonary Disease; Nurse Practitioner Family; Physician Assistant; ADMIT Internal Medicine
PROC: 5A1945Z Respiratory Ventilation, 24-96 Consecutive Hours (ICD-10-PCS; principal; 2023-02-03)
PROC: 0BH17EZ Insertion of Endotracheal Airway into Trachea, Via Natural or Artificial Opening (ICD-10-PCS; 2023-02-03)
PROC: 02HV33Z Insertion of Infusion Device into Superior Vena Cava, Percutaneous Approach (ICD-10-PCS; 2023-02-03)
DX: G70.01 Myasthenia gravis with (acute) exacerbation (principal); J96.01 Acute respiratory failure with hypoxia; I47.1 Supraventricular tachycardia; E89.0 Postprocedural hypothyroidism; K21.9 Gastro-esophageal reflux disease without esophagitis; J38.00 Paralysis of vocal cords and larynx, unspecified
CPT/HCPCS: C1751; C9113; J0282; J1200; J1569; J1815; J2250; J2543; J2704; J2920; J3010; J3411; J3480; J7030; J7050; J7060; J7510; Q3014; Q9967

== ENCOUNTER 2023-03-01 14:00 | Outpatient (RCR) | payer MEDICARE, OTHER ==
[~2023-03-01 14:00] MED LIST changes: +B COMPLEX #11 TA1 PO; +MESTINON 6060 MG/TAB PO; +NATURAL IRON65 MG PO; +PREDNISONE20 MG PO; +PRILOSEC 20MG20 MG PO; +SELENOMAX200 MC1 PO; +TAMBOCOR50 MG PO
== END 2023-03-29 | disposition home or self-care (01) ==
LOC: WSST
DX: R13.10 Dysphagia, unspecified (principal); R49.1 Aphonia; R29.818 Other symptoms and signs involving the nervous system; G70.89 Other specified myoneural disorders; G70.00 Myasthenia gravis without (acute) exacerbation

== ENCOUNTER → 2023-06-08 | Outpatient (CLI) | payer MEDICARE | LOC: COL.RAD 07:43 | DX: D33.3 Benign neoplasm of cranial nerves (principal); H90.3 Sensorineural hearing loss, bilateral | CPT/HCPCS: A9575 ==

== ENCOUNTER → 2024-01-25 | Outpatient (CLI) | payer MEDICARE | LOC: COL.RAD 10:13 | DX: C73 Malignant neoplasm of thyroid gland (principal); E89.0 Postprocedural hypothyroidism ==